=== PATIENT | male | born 1965 | race Caucasian/White ===

== ENCOUNTER 2017-07-19 16:35 | Outpatient (CLI) | END 2017-07-19 16:36 | disposition home or self-care (01) | LOC: FCC-LAB 16:35 | PROVIDERS: ATTEND General Practice | DX: R19.7 Diarrhea, unspecified (principal); I10 Essential (primary) hypertension; E78.5 Hyperlipidemia, unspecified; Z79.899 Other long term (current) drug therapy; Z12.5 Encounter for screening for malignant neoplasm of prostate | CPT/HCPCS: 36415; 80053; 80061; 81001; 85025 ==

== ENCOUNTER 2017-07-20 18:04 | Outpatient (CLI) | END 2017-07-20 18:05 | disposition home or self-care (01) | LOC: FCC-LAB 18:04 | PROVIDERS: ATTEND General Practice | DX: R19.7 Diarrhea, unspecified (principal); E78.5 Hyperlipidemia, unspecified; I10 Essential (primary) hypertension; Z79.899 Other long term (current) drug therapy | CPT/HCPCS: 36415; 87015; 87045; 87329; 87493; 87899 ==

== ENCOUNTER 2017-07-21 12:41 | Outpatient (CLI) ==
--- NOTE | 2017-07-21 16:17 | US ---
Exam: Meyer-scale and color ultrasonographic evaluation of the carotid arteries. Comparison: 12/17/2014. Reason for exam: Bilateral Bruit FINDINGS: There is a small to moderate amount of plaque seen in the right internal carotid artery The ECA measures 1.3 meters per second Right CCA measures 0.4 / 0.2 meters per second. Right internal carotid artery peak systolic velocity measures 0.8 meters per second Right internal carotid artery/CCA PSV ratio measures 1.8 Right internal carotid artery end-diastolic velocity measures 0.3 meters per second There is normal antegrade right vertebral artery flow. Left ECA measures 2.4 meters per second Left CCA measures 0.9 / 0.1 meters per second. Left internal carotid artery peak systolic velocity measures 0.8 meters per second Left internal carotid artery/CCA PSV ratio measures 0.9 Left internal carotid artery end-diastolic velocity measures 0.2 meters per second There is normal antegrade left vertebral artery flow. Impression: 1. No evidence of significant stenotic disease is seen by peak systolic velocity measurements in eit her the right or left internal carotid arteries. 2. Antegrade vertebral artery flow is seen bilaterally.
--- NOTE | 2017-07-21 16:24 | CT ---
Exam: CT abdomen pelvis without intravenous contrast. Comparison: None available. Reason for exam: Diarrhea. FINDINGS: No pleural effusion, or focal consolidation in the partially imaged lung bases. The liver is lower in attenuation in the spleen. Hyperdense hepatic parenchyma is seen within the ga llbladder fossa. Image interpretation is limited by the lack of intravenous contrast administration. The spleen, adrenal glands, gallbladder, and pancreas appear grossly unremarkable. Thickening of the proximal gastric wall is likely secondary to non distension. No hydronephrosis, hydroureter, or ureterolithiasis is seen in either kidney. There is mild perinephric inflammatory change bilaterally. No intra-abdominal free air or pelvic free fluid. The bladder appears grossly unremarkable although evaluation is somewhat limited by non distension. The appendix is not seen on the exam. No inflammatory changes are seen within the expected location of the appendix. No acute inflammatory findings are seen within the abdomen or pelvis. Degenerative disease is seen in the lumbosacral spine with osteophyte formation. Impression: 1. No acute inflammatory changes are seen within the abdomen or pelvis. 2. Hepatic steatosis with what appears to be a focal fatty sparing in the gallbladder fossa. If clini madisyn concern exists, contrast imaging or MRI may be performed for further characterization.
== END 2017-07-21 12:42 | disposition home or self-care (01) ==
LOC: RAD 12:41
PROVIDERS: ATTEND General Practice
DX: R19.7 Diarrhea, unspecified (principal); R09.89 Other specified symptoms and signs involving the circulatory and respiratory systems

== ENCOUNTER 2017-07-22 06:45 | Outpatient (CLI) ==
--- NOTE | 2017-07-22 08:02 | STRESSECHO ---
Date of Test: 07/22/17 Ordering Physician: DR. SPENCER IBRAHIM Occupation : [employer] EM[employer] Reason for Exam: JAW PAIN, HTN, DYSLIPIDEMIA, FAMILY HX Smoking History: NO Height: 75" Weight: 315 LBS Current Medications: LEVAQUIN, CRESTOR, LISINOPRIL, NEXIUM Resting EKG: SINUS RHYTHM/ LEFT VENTRICULAR HYPERTROPHY Target Heart Rate: 141/167 S-T SEGMENT STAGE MPH/GRADE HEART RATE BPM BLOOD PRESSURE MMHG RHYTHM +/- ELEVATION DEPRESSION SYMPTOMS,COMMENTS AT REST 78 154/80 SR X NONE 1 1.7/10% 120 162/82 SR X NONE 2 2.5/12% 3 3.4/14% 4 4.2/16% 5 5.0/18% Immediately After 133 176/88 SR X SOB/ FATIGUE/NECK DISCOMFORT Minutes Post Exercise 2:30 100 186/84 SR X NO SYMPTOMS Minutes Post Exercise 8:00 80 164/80 SR X NO SYMPTOMS DURATION OF EXERCISE: 4:51 MAXIMUM HEART RATE REACHED: 133 BPM REASON FOR TERMINATION: SOB, FATIGUE, NECK DISCOMFORT 96% OXYGEN SATURATION WITH EXERCISE ON ROOM AIR METS: 7.0 INTERPRETATION: 1. TEST POSITIVE FOR ISCHEMIC ST-T WAVE CHANGES 2. DISCOMFORT IN THE NECK/ JAW AREA 3. BLOOD PRESSURE RESPONSE: BORDERLINE HYPERTENSION 4. COUPLE OF PVC'S WITH EXERCISE LEFT VENTRICULAR CONTRACTILITY--NORMAL AT REST AND MAYBE HYPOKINETIC SEPTUM WITH EXERCISE MTDD
--- NOTE | 2017-07-22 08:05 | ECHOSTRESS ---
Date of Exam: 07/22/17 Ordering Physician: DR. SPENCER IBRAHIM Reason for Echo: JAW PAIN, STRESS TEST--POSITIVE FOR ISCHEMIA M-Mode Normal Adult Results LV Dimensions Normal Adult Results AoV Opening excursions >1.6 LVEDD-base- 3.5-5.8 Ao root dimensions 2.0-3.7 LVESD-base- 3.1-4.6 L. Atrium dimensions 1.9-3.8 Post. Wall thickness 0.8-1.1 IV septum (thickness) 0.7-1.2 Post. Wall excursion 0.72-1.3 Septal motion Systolic motion R. Ventricular cavity 1.5-2.0 LVEF 60% Paradoxical septal wall motion 2-D: NORMAL LEFT VENTRICULAR CONTRACTILITY AT REST AND MAYBE HYPOKINETIC SEPTUM WITH EXERCISE M-MODE: MV: AV: TV: PV: CHAMBER SIZE: WALL MOTION: NORMAL LEFT VENTRICULAR CONTRACTILITY AT REST AND MAYBE HYPOKINETIC SEPTUM WITH EXERCISE PERICARDIUM: INTERPRETATION: 1. NORMAL LEFT VENTRICULAR CONTRACTILITY AT REST AND MAYBE HYPOKINETIC SEPTUM WITH EXERCISE MTDD
== END 2017-07-22 06:46 | disposition home or self-care (01) ==
LOC: CAR 06:45
PROVIDERS: ATTEND General Practice
DX: R68.84 Jaw pain (principal)